=== PATIENT | female | born 2000 | race Caucasian/White ===

== ENCOUNTER 2022-02-03 16:02 | Emergency (ER) | payer BC ==
[~2022-02-03] VITALS: Ht 170.2 cm; Wt 86.0 kg
--- NOTE | 2022-02-03 17:56 | RAD ---
OB ultrasound is 40 weeks HISTORY: Suprapubic pain approximately 8 weeks gestational age Sonographic examination of the was performed by transabdominal technique and multiple stati c images were obtained. FINDINGS: There is a single live intrauterine . The heartbeat is confirmed at 175 bpm. The crown rump length of 1.7 cm corresponds to an 8 week 1 day gestational age and estimated date of confinement of September 14, 2022. Visualization of structures is limited at this early gestation al age. The LMP of December 04, 2021 corresponds with an 8 week 5 day gestational age and is made to the confi nement of September 10, 2022. The ovaries appear normal normal blood flow. IMPRESSION: 1. Single live anterior at 8 weeks 1 day gestational age. 2. No abnormality identified. A short-term follow-up ultrasound could be performed if clinically sofía cated otherwise a structural survey would be performed at 18-21 weeks gestational age. Electronically signed by: Jn Jameson III, MD (02/03/2022 5:53 PM) ARSALAN
--- NOTE | 2022-02-03 18:12 | PHYS DOC ---
Past History Past Medical History: No Pertinent History (BLAZE FERGUSON) Past Surgical History: No Surgical History (BLAZE FERGUSON) General Adult EDM: Chief Complaint: VAGINAL BLEEDING HPI: HPI: Patient is a 21 year old A0 female approximately 8 weeks gestation who presents with suprapubic pain and vaginal spotting. Patient reports she has had intermittent mild cramping since around the time she found out she was , but today and yesterday has been worse. She reports the pain is intermittently sharp and radiates upward towards her abdomen. Patient reports this feeling is similar to the feeling of contractions in her prior . Additionally, this morning she has had some mild vaginal spotting. She believes her blood type is B-, but she is unsure. She does not think she had to have RhoGam administered in her previous either. She denies other complaints at this time. (BLAZE FERGUSON) Review of Systems: Review of Systems: ROS negative or noncontributory except as mentioned in HPI. (BLAZE FERGUSON) Physical Exam: PE: Constitutional: Well developed, well nourished, no acute distress, non-toxic appearance. HENT: Normocephalic, atraumatic, bilateral external ears normal, nose normal. Eyes: EOMI, conjunctiva normal, no discharge. Neck: Normal range of motion, no stridor. Abdomen: Bowel sounds normal, soft, mild suprapubic tenderness without rebound or guarding, no masses, no pulsatile masses. Skin: Warm, dry, no erythema, no rash. Back: No tenderness, no CVA tenderness. Extremities: No cyanosis, no clubbing, ROM intact, no edema. Neurologic: Alert and oriented x4, normal motor function, normal sensory function, no focal deficits noted. (BLAZE FERGUSON) Current Patient Data: Labs: Laboratory Tests Test 02/03/22 17:03 02/03/22 17:48 Bedside Urine HCG, Qualitative hcg positive (Negative) White Blood Count 5.8 x10^3/uL (4.0-11.0) Red Blood Count 4.33 x10^6/uL (3.50-5.40) Hemoglobin 12.9 g/dL (12.0-15.5) Hematocrit 38.0 % (36.0-47.0) Mean Corpuscular Volume 88 fL (79-100) Mean Corpuscular Hemoglobin 30 pg (25-35) Mean Corpuscular Hemoglobin Concent 34 g/dL (31-37) Red Cell Distribution Width 12.4 % (11.5-14.5) Platelet Count 203 x10^3/uL (140-400) Neutrophils (%) (Auto) 67 % (31-73) Lymphocytes (%) (Auto) 18 % (24-48) Monocytes (%) (Auto) 14 % (0-9) Eosinophils (%) (Auto) 1 % (0-3) Basophils (%) (Auto) 0 % (0-3) Neutrophils # (Auto) 3.9 x10^3uL (1.8-7.7) Lymphocytes # (Auto) 1.0 x10^3/uL (1.0-4.8) Monocytes # (Auto) 0.8 x10^3/uL (0.0-1.1) Eosinophils # (Auto) 0.1 x10^3/uL (0.0-0.7) Basophils # (Auto) 0.0 x10^3/uL (0.0-0.2) Urine Collection Type Unknown Urine Color Yellow Urine Clarity Hazy Urine pH 6.0 Urine Specific Grayling >=1.030 Urine Protein Trace (NEG-TRACE) Urine Glucose (UA) Neg mg/dL (NEG) Urine Ketones (Stick) Neg mg/dL (NEG) Urine Blood Trace (NEG) Urine Nitrite Neg (NEG) Urine Bilirubin Neg (NEG) Urine Urobilinogen Dipstick 2.0 mg/dL (0.2 mg/dL) Urine Leukocyte Esterase Small (NEG) Urine RBC Rare /HPF (0-2) Urine WBC >40 /HPF (0-4) Urine Squamous Epithelial Cells Many /LPF Urine Bacteria Mod /HPF (0-FEW) Urine Mucus Marked /LPF Maternal Serum HCG Beta Subunit 720637 mIU/mL (0-6) Sodium Level 135 mmol/L (136-145) Potassium Level 3.6 mmol/L (3.5-5.1) Chloride Level 102 mmol/L (98-107) Carbon Dioxide Level 25 mmol/L (21-32) Anion Gap 8 (6-14) Blood Urea Nitrogen 8 mg/dL (7-20) Creatinine 0.6 mg/dL (0.6-1.0) Estimated GFR (Cockcroft-Gault) 126.2 BUN/Creatinine Ratio 13 (6-20) Glucose Level 74 mg/dL (70-99) Calcium Level 8.6 mg/dL (8.5-10.1) Total Bilirubin 0.7 mg/dL (0.2-1.0) Aspartate Amino Transf (AST/SGOT) 19 U/L (15-37) Alanine Aminotransferase (ALT/SGPT) 33 U/L (14-59) Alkaline Phosphatase 53 U/L (46-116) Total Protein 6.9 g/dL (6.4-8.2) Albumin 3.9 g/dL (3.4-5.0) Albumin/Globulin Ratio 1.3 (1.0-1.7) (BLAZE FERGUSON) Radiology/Procedures: Radiology/Procedures: PROCEDURE: PREG 1ST TRIMESTER OB ultrasound is 40 weeks HISTORY: Suprapubic pain approximately 8 weeks gestational age Sonographic examination of the was performed by transabdominal technique and multiple static images were obtained. FINDINGS: There is a single live intrauterine . The heartbeat is confirmed at 175 bpm. The crown rump length of 1.7 cm corresponds to an 8 week 1 day gestational age and estimated date of confinement of September 14, 2022. Visualization of structures is limited at this early gestational age. The LMP of December 04, 2021 corresponds with an 8 week 5 day gestational age and is made to the confinement of September 10, 2022. The ovaries appear normal normal blood flow. IMPRESSION: 1. Single live anterior at 8 weeks 1 day gestational age. 2. No abnormality identified. A short-term follow-up ultrasound could be performed if clinically indicated otherwise a structural survey would be performed at 18-21 weeks gestational age. Electronically signed by: Jn Jameson III, MD (02/03/2022 5:53 PM) [facility] (BLAZE FERGUSON) Heart Score: C/O Chest Pain: No (BLAZE FERGUSON) Course & Med Decision Making: Course & Med Decision Making Pertinent Labs and Imaging studies reviewed. (See chart for details) Patient is a 21-year-old female currently in her second at approximately 8 weeks gestation with complaints of suprapubic pain and vaginal bleeding. Patient is unsure of her blood type, but believes it is B-. Work-up today will include labs, pelvic ultrasound, urinalysis. Urinalysis reveals numerous white blood cells and trace leuk esterase, so she will be treated with Keflex. Otherwise, her work-up today is unremarkable. Patient's blood type is B+, so no RhoGam is necessary at this time. Patient is instructed to follow-up with regular care from the clinic where she had her confirmation ultrasound. All the patient's questions were answered. She understands and is agreeable to discharge plan. (BLAZE FERGUSON) Dragon Disclaimer: Dragon Disclaimer: This electronic medical record was generated, in whole or in part, using a voice recognition dictation system. (BLAZE FERGUSON) Attending Co-Sign The patient was seen and interviewed as well as examined at the bedside. The chart was reviewed. The case was discussed. Agree with the plan of care. (NASRIN BRANDT DO) Departure Departure: Impression: Primary Impression: Vaginal bleeding in patient at less than 20 weeks gestation Additional Impression: Pyuria Disposition: 01 HOME / SELF CARE / HOMELESS Condition: STABLE Referrals: PCPWILBERT (PCP) DEON VAUGHAN MD Patient Instructions: Vaginal Bleeding During , First Trimester Additional Instructions: EMERGENCY DEPARTMENT GENERAL DISCHARGE INSTRUCTIONS Thank you for coming to [facility] (ED) today and trusting us with you care. We trust that you had a positive experience in our Emergency Department. If you wish to speak to the department management, you may call the director at [phone]. YOUR FOLLOW UP INSTRUCTIONS ARE FOLLOWS: 1. Follow up with your primary care doctor. If you do not have a primary doctor, please ask for a resource list of physicians or clinics that may be able to assist you with follow up care. 2. The emergency provider has interpreted your imaging studies, if any were ordered. The radiology student education specialist also reviewed them. If there is a change in the findings, you will be notified in 48 hours when at all possible. 3. If a lab test or culture has been done, your results will be reviewed and you will be notified if you need a change in treatment. 4. Follow instructions verbalized to you and refer to the printouts if needed. ADDITIONAL INSTRUCTIONS AND INFORMATION: 1. Your care today has been supervised by a physician who is specially trained in emergency care. Many problems require more than one evaluation for a complete diagnosis and treatment. We recommend that you schedule your follow up appointment as recommended to ensure complete treatment of you illness or injury. If you are unable to obtain follow up care and continue to have a problem, or if your condition worsens, we recommend that you return to the ED. 2. We are not able to safely determine your condition over the phone nor are we able to give sound medical advice over the phone. For these safety reasons, if you call for medical advice we will ask you to come to the ED for further evalu ation. 3. If you have any questions regarding these discharge instructions please call the ED at [phone]. SAFETY INFORMATION: In the interest of safety, wellness, and injury prevention; we encourage you to wear your seat belt, if you smoke; quite smoking, and we encourage family to use a protective helmet for bicycling and other sporting events that present an increased risk for head injury. IF YOUR SYMPTOMS WORSEN OR NEW SYMPTOMS DEVELOP, OR YOU HAVE CONCERNS ABOUT YOUR CONDITION; OR IF YOUR CONDITION WORSENS WHILE YOU ARE WAITING FOR YOUR FOLLOW UP APPOINTMENT; EITHER CONTACT YOUR PRIMARY CARE DOCTOR, THE PHYSICIAN WHOSE NAME AND NUMBER YOU WERE GIVEN, OR RETURN TO THE ED IMMEDIATELY. Scripts Cephalexin (KEFLEX) 500 Mg Capsule 1 CAP PO BID for UTI for 10 Days, #20 CAP Prov: BLAZE FERGUSON 02/03/22 BLAZE FERGUSON Feb 03, 2022 18:12 NASRIN BRANDT DO Feb 05, 2022 05:34
[2022-02-03 18:19] LABS: BASO % 0 % (0-3); EOS # 0.1 x10^3/uL (0.0-0.7); EOS % 1 % (0-3); HEMOGLOBIN 12.9 g/dL (12.0-15.5); LYMPH % 18 % (24-48); MEAN CORPUSCULAR HEMOGLOBIN 30 pg (25-35); MEAN CORPUSCULAR HGB CONC 34 g/dL (31-37); MEAN CORPUSCULAR VOLUME 88 fL (79-100); MONO # 0.8 x10^3/uL (0.0-1.1); MONO % 14 % (0-9); NEUT # 3.9 x10^3uL (1.8-7.7); NEUT % 67 % (31-73); PLATELET COUNT 203 x10^3/uL (140-400); RED BLOOD COUNT 4.33 x10^6/uL (3.50-5.40); RED CELL DISTRIBUTION WIDTH 12.4 % (11.5-14.5); WHITE BLOOD COUNT 5.8 x10^3/uL (4.0-11.0)
[2022-02-03 18:28] LABS: CALCIUM 8.6 mg/dL (8.5-10.1); CREATININE 0.6 mg/dL (0.6-1.0); GFR 126.2; POTASSIUM 3.6 mmol/L (3.5-5.1)
[2022-02-03 18:34] LABS: ALBUMIN 3.9 g/dL (3.4-5.0); ALBUMIN/GLOBULIN RATIO 1.3 (1.0-1.7); TOTAL BILIRUBIN 0.7 mg/dL (0.2-1.0); TOTAL PROTEIN 6.9 g/dL (6.4-8.2)
[2022-02-03 19:00] LABS: BACTERIA,URINE MOD /HPF (0-FEW); CLARITY,URINE HAZY; COLOR,URINE YELLOW; GLUCOSE,URINE NEG (NEG); NITRITE,URINE NEG (NEG); RBC,URINE RARE /HPF (0-2); SQUAMOUS EPITHELIAL CELL,UR MANY /LPF; WBC,URINE >40 /HPF (0-4)
[2022-02-03] MEDS ORDERED: CEPH500C PO (21:00)
[2022-02-03 21:18] VITALS: BP 112/65
== END 2022-02-03 21:15 | disposition home or self-care (01) ==
LOC: ER 16:02
DX: O20.9 Hemorrhage in early pregnancy, unspecified (principal); Z3A.08 8 weeks gestation of pregnancy; R82.81 Pyuria
CPT/HCPCS: 36415; 76801; 80053; 81001; 81025; 84702; 85025; 86900; 86901; 87086; 87491; 87591; 99284